=== PATIENT | female | born 1950 | race Two or more races ===

== ENCOUNTER → 2025-06-05 | Outpatient (CLI) | payer MEDICARE, SELFPAY ==
--- NOTE | 2025-06-05 13:00 | XR_ITS ---
Examination: Steroid injection left hip joint with imaging guidance Fluoroscopy AP left hip single view INDICATIONS:. Diagnosis primary left hip unilateral osteoarthritis, left hip pain months Exam date and time: June 05, 2025 1236 hours Informed consent provided. Technique: A timeout was completed verifying correct patient, procedure, site, positioning. The patient was placed in supine position appropriate for the steroid injection The patient's site was prepped and draped in sterile fashion 5 cc 1% lidocaine administered locally for anesthesia. Sterile drape applied, maximum barrier sterile technique. Utilizing fluoroscopic guidance, 23-gauge needle placed in the left hip joint 1 cc Kenalog 40 in 5 cc 0.25% Marcaine introduced into the left hip joint The patient was in satisfactory and stable condition on completion of the procedure Attending radiologist was present for the entire procedure Estimated blood loss 0 cc. Impression: Successful steroid injection left hip joint with imaging guidance Fluoroscopy 0.3 minute radiation dose 2.85 milligray 1 spot fluoroscopic AP left hip film .
[2025-06-05] MEDS: TRIAMCINOLONE ACET INJ 40 MG/ML VIAL IARTICULAR (13:19)
[2025-06-05] MEDS: BUPIVACAINE MPF 0.5% 30 ML VIAL EPID (13:19)
== END | disposition home or self-care (01) ==
LOC: SIRX 12:39
PROVIDERS: PCP Internal Medicine; Referring Provider Orthopaedic Surgery; Visit Provider Orthopaedic Surgery
DX: M16.12 Unilateral primary osteoarthritis, left hip (principal)
CPT/HCPCS: 20610; 77002; J3301; J3490